=== PATIENT | male | born 1985 | race Caucasian/White ===

== ENCOUNTER 2019-03-27 15:20 | Emergency (ER) | payer OTHER ==
[~2019-03-27] VITALS: Ht 175.3 cm; Wt 65.8 kg
[2019-03-27 16:28] LABS: ABSOLUTE BASOPHILS 0.1 thou/uL (0.0-0.2); ABSOLUTE EOSINOPHILS 0.1 thou/uL (0.0-0.7); ABSOLUTE MONOCYTES 1.1 thou/uL (0.0-1.2); ABSOLUTE NEUTROPHILS 10.5 thou/uL (1.6-8.1); BASOPHILS 0.7 %; EOSINOPHILS 0.6 %; HEMATOCRIT 42.5 % (42.0-52.0); HEMOGLOBIN 14.9 gm/dL (14.0-18.0); LYMPHOCYTES 14.7 %; MCH 29.8 pg (26.0-34.0); MCHC 34.9 g/dL (28.0-37.0); MCV 85.5 fL (80.0-100.0); MONOCYTES 7.9 %; MPV 7.8 fl. (7.2-11.1); NUCLEATED RBCS 0 /100WBC; PLATELET COUNT* 342 thou/uL (150-400); POLYS 76.1 %; RBC 4.98 mil/uL (4.50-6.00); RDW-CV 13.7 % (10.5-14.5); WBC 13.8 thou/uL (4.0-11.0)
[2019-03-27 16:51] LABS: CALCIUM 8.8 mg/dL (8.5-10.1); POTASSIUM 3.7 mmol/L (3.5-5.1)
[2019-03-27 16:57] LABS: ALBUMIN 4.3 g/dL (3.4-5.0); TOTAL BILIRUBIN 1.4 mg/dL (<0.1-1.0); TOTAL PROTEIN 7.7 g/dL (6.4-8.2)
[2019-03-27] MEDS ORDERED: CENTANY30 GM TOP (17:49)
[2019-03-27] MEDS ORDERED: CLEOCIN HCL150 MG PO (17:49)
[2019-03-27 18:12] VITALS: BP 150/80
== END 2019-03-27 18:13 | disposition home or self-care (01) ==
LOC: M.ERS
PROVIDERS: Physician Assistant
DX: L03.211 Cellulitis of face (principal); L01.00 Impetigo, unspecified

== ENCOUNTER 2019-03-29 07:21 | Emergency (ER) | payer OTHER ==
[~2019-03-29] VITALS: Ht 172.7 cm; Wt 90.7 kg
[~2019-03-29 07:21] MED LIST: CENTANY30 GM TOP; CLEOCIN HCL150 MG PO
[2019-03-29 10:45] VITALS: BP 0/0
--- NOTE | 2019-03-30 16:49 | NUR ---
entered onto restraint log 03/30/19.
== END 2019-03-29 10:45 ==
LOC: M.ERS 07:21
DX: R41.82 Altered mental status, unspecified (principal)